=== PATIENT | female | born 1950 | race African-American/Black ===

== ENCOUNTER 2017-03-06 06:06 | Day surgery (SDC) | payer OTHER ==
[~2017-03-06] VITALS: Ht 167.6 cm; Wt 93.4 kg
[2017-03-06] VITALS (11 sets, daily range): BP systolic 131–149; BP diastolic 83–98
[~2017-03-06 06:06] MED LIST: ASPIR 8181 MG ORAL; Akten 3.5% 1ml Btl ONE; CARVEDILOL25 MG ORAL; Diclofenac Sod 0.1% Op Soln ONE; EDARBYCLOR 40-1 EACH ORAL; Gatifloxacin Opth Solution 0.5% ONE; HYDRALAZINE HC100 MG ORAL; K-DUR10 ME1 ORAL; MYCOPHENOLATE500 MG PO; NOVOLOG100 UNITS1; PRAVASTATIN SOD20 M1 ORAL; PREDNISONE10 MG ORAL; Phenylephrine 2.5% Op Soln ONE; TACROLIMUS1 MG PO; TENEX PO; Tobradex Opth Susp 2.5ml ONE; Tropicamide 1% Opth Soln ONE; VIT C PO; VIT D; VIT D3 PO; VIT E PO
[2017-03-06] MEDS ORDERED: Tobradex Opth Susp 2.5ml ONE (06:37)
[2017-03-06] MEDS ORDERED: Dexamethasone 4mg/ml vial ONE (06:37)
[2017-03-06] MEDS ORDERED: BSS 500ml btl ONE (06:37)
[2017-03-06] MEDS ORDERED: Lidocaine 1% MPF 10mg/ml 5ml ONE (06:37)
[2017-03-06] MEDS ORDERED: Povidone-Iodine 5% opth solution ONE (06:38)
[2017-03-06] MEDS ORDERED: EPINEPHrine 1mg/1ml Amp ONE (06:38)
[2017-03-06] MEDS ORDERED: Akten 3.5% 1ml Btl ONE (06:39)
[2017-03-06] MEDS ORDERED: Sodium Hyaluronate 10 mg/ml 0.85ml ONE (06:43)
[2017-03-06] MEDS ORDERED: Carbachol 0.01% Op Soln 1.5ml vial ONE (06:43)
[2017-03-06] MEDS: Diclofenac Sod 0.1% Op Soln RIGHT EYE SCH ×3 (06:46→07:04)
[2017-03-06] MEDS: Tropicamide 1% Opth Soln RIGHT EYE SCH ×3 (06:46→07:03)
[2017-03-06] MEDS: Phenylephrine 2.5% Op Soln RIGHT EYE SCH ×3 (06:46→07:03)
[2017-03-06] MEDS: Tobradex Opth Susp 2.5ml RIGHT EYE SCH ×3 (06:46→07:03)
[2017-03-06] MEDS: Akten 3.5% 1ml Btl RIGHT EYE SCH ×3 (06:47→07:03)
[2017-03-06] MEDS: Gatifloxacin Opth Solution 0.5% RIGHT EYE SCH ×3 (06:47→07:03)
[2017-03-06] MEDS ORDERED: Diclofenac Sod 0.1% Op Soln RIGHT EYE SCH (07:30)
[2017-03-06] MEDS ORDERED: Gatifloxacin Opth Solution 0.5% RIGHT EYE SCH (07:30)
[2017-03-06] MEDS ORDERED: NS Irrig 1000ml ONE (07:30)
[2017-03-06] MEDS ORDERED: Midazolam 2mg/2ml Inj ONE (07:30)
[2017-03-06] MEDS ORDERED: LR 1000ml ONE (07:30)
[2017-03-06] MEDS ORDERED: fentaNYL 100 mcg/2 mL IV ONE (07:30)
[2017-03-06] MEDS ORDERED: Sterile Water Irrig 1000ml IRRIG ONE (07:30)
--- NOTE | 2017-03-06 07:36 | Pre-Procedure Note/Attestation ---
Pre-Procedure Note/Attestation Complete Prior to Procedure Planned Procedure: right Procedure Narrative: cataract extraction with implant right eye Indications for Procedure Pre-Operative Diagnosis: cataract right eye Attestation I attest that I discussed the nature of the procedure; its benefits; risks and complications; and alternatives (and the risks and benefits of such alternatives ), prior to the procedure, with the patient (or the patient's legal farm loan representative). I attest that, if there was a reasonable possibility of needing a blood transfusion, the patient (or the patient's legal farm loan representative) was given the [facility] standardized written summary, pursuant to the [place] Blood Safety Act ([place] Health and Safety Code # 1645, as amended). I attest that I re-evaluated the patient just prior to the surgery and that there has been no change in the patient's H&P, except as documented below: EDMUND MAN Mar 06, 2017 07:36
--- NOTE | 2017-03-06 07:50 | Anethesia Preoperative Eval ---
Anesthesia Pre-op PMH/ROS General Date of Evaluation: Mar 06, 2017 Time of Evaluation: 07:49 Anesthesiologist: radha ASA Score: ASA 3 Mallampati Score Class I : Soft palate, uvula, fauces, pillars visible Class II: Soft palate, uvula, fauces visible Class III: Soft palate, base of uvula visible Class IV: Only hard plate visible Mallampati Classification: Class III Surgeon: annmarie Diagnosis: cataract Surgical Procedure: cataract extraction with IOL Anesthesia History: none Family History: no anesthesia problems Allergies: Coded Allergies: PENICILLINS (Verified Allergy, Intermediate, hives, 03/05/17) Medications: see eMAR Past Medical History Cardiovascular: Reports: CAD, HTN Gastrointestinal/Genitourinary: Denies: CRI, ESRD, GERD, other Neurologic/Psychiatric: Denies: CVA, TIA, dementia, depression/anxiety, other Endocrine: Reports: DM HEENT: Reports: cataract (R) Hematology/Immune: Denies: DVT, anemia, bleeding disorder, other Musculoskeletal/Integumentary: Denies: DDD, DJD, OA, RA, edema, other Other: obesity PSxH Narrative: heart transplant 7 years ago Anesthesia Pre-op Phys. Exam Physician Exam Last Vital Signs Date Time Temp Pulse Resp B/P Pulse Ox O2 Delivery O2 Flow Rate FiO2 03/06/17 06:52 98.0 75 18 133/87 97 Room Air Constitutional: NAD Neurologic: CN 2-12 intact Cardiovascular: RRR Respiratory: CTA Gastrointestinal: S/NT/ND Airway Exam Mallampati Classification 3 Mallampati Score: Class III MO: full Neck: thick ROM: full Dentures: no lower, no upper Anesthesia Pre-op A/P Labs Accucheck bs = 158 Studies Pre-op Studies: EKG - s Risk Assessment & Plan Plan: mac Status Change Before Surgery: No Pre-Antibiotics Drug: none FRED LOPEZ ELDERLY COMPANION Mar 06, 2017 07:50
--- NOTE | 2017-03-06 08:09 | Brief Operative Note ---
Immediate Post Operative Note Operative Note Pre-op Diagnosis: cataract right eye Procedure: phacoemulsification of cataract with implant right eye Post-op Diagnosis: same as pre-op Surgeon: edmund anguiano Management Professional: none Anesthesiologist: prabhjot garcia crna Anesthesia: MAC Specimen: none Complications: none Condition: stable Estimated Blood Loss: none Drains: none Implant(s) used?: Yes EDMUND ANGUIANO Mar 06, 2017 08:09
--- NOTE | 2017-03-06 08:18 | Immediate Post-Op Evaluation ---
Immediate Post-Op Evalulation Immediate Post-Op Evalulation Procedure: cataract extraction with IOL Date of Evaluation: Mar 06, 2017 Time of Evaluation: 08:05 IV Fluids: 300 Blood Pressure Systolic: 145 Blood Pressure Diastolic: 70 Pulse Rate: 70 Respiratory Rate: 14 O2 Sat by Pulse Oximetry: 100 Temperature (Fahrenheit): 97.0 Nausea: No Vomiting: No Complications none Patient Status: awake, reacts, patent Hydration Status: adequate Drug: none DELANEYRIJAMIONFRED [employer] Mar 06, 2017 08:18
--- NOTE | 2017-03-06 08:55 | 48 Hour Post Anesthesia Eval ---
Post Anesthesia Evaluation Procedure: cataract extraction with IOL Date of Evaluation: Mar 06, 2017 Time of Evaluation: 08:54 Blood Pressure Systolic: 146 0: 89 Pulse Rate: 75 Respiratory Rate: 14 O2 Sat by Pulse Oximetry: 100 Airway: patent Nausea: No Vomiting: No Hydration Status: adequate Cardiopulmonary Status: stable Mental Status/LOC: patient returned to baseline Post-Anesthesia Complications: none Follow-up care needed: N/A FRED LOPEZ CRNA Mar 06, 2017 08:55
--- NOTE | 2017-03-06 09:15 | Operative Note - Dictated ---
DATE OF OPERATION: 03/06/2017 PREOPERATIVE DIAGNOSIS: Cataract, right eye. POSTOPERATIVE DIAGNOSIS: Cataract, right eye. PROCEDURE: Phacoemulsification cataract right eye with placement of posterior chamber intraocular lens. SURGEON: Samuel Mcgill M.D. SNAGGER: None. ANESTHESIA: MAC/topical. ANESTHESIOLOGIST: Selina Vee C.R.N.A. INDICATION FOR PROCEDURE: Poor vision, right eye. DESCRIPTION OF FINDINGS: Nuclear sclerotic cataract, right eye. DESCRIPTION OF PROCEDURE: The patient received a topical anesthetic block consisting of 3.5% Akten eye drops. The eye was then prepped and draped in usual manner. A lid speculum was placed and a Zeiss microscope was positioned. A temporal corneal groove was made with the kyrie blade. A SuperSharp blade made a stab incision in the 12 o'clock position. A 0.1 mL of 1% nonpreserved intracameral lidocaine was injected. Healon was instilled into the anterior chamber and a 2.5/2.8 mm trapezoidal kyrie blade was used to complete the temporal corneal wound. A cystotome was used to create an anterior capsular flap. Utrata forceps were used to complete the capsulorrhexis. BSS on a cannula was used to hydrodissect the nucleus. The lens nucleus was phacoemulsified in a phaco-fracture technique. Remaining cortical material was removed with the I/A and the posterior capsule polished with the I/A on Cap vac. Healon was reinstilled into the capsular bag and anterior chamber, and an John foldable one-piece posterior chamber lens, model ZCB00, power 10.5 diopter, serial #[id number] was placed in the injector. The lens was put into the capsular bag. The I/A tip was used to remove the Healon and position the lens. The wound edge was hydrated with BSS and a blunt-tipped cannula. The wound was checked and found to be watertight. The lid speculum was removed. A drop of TobraDex and Zymaxid with was placed. A clear plastic shield was taped over the eye. The patient tolerated the procedure well and left the operating room in good condition. Samuel Mcgill M.D. (CSM) DR: MIHIR JOB#: [id number] CC:
== END 2017-03-06 09:25 | disposition home or self-care (01) ==
LOC: SUR 06:06
DX: H25.11 Age-related nuclear cataract, right eye (principal); E11.42 Type 2 diabetes mellitus with diabetic polyneuropathy; I13.0 Hypertensive heart and chronic kidney disease with heart failure and stage 1 through stage 4 chronic kidney disease, or unspecified chronic kidney disease; E11.22 Type 2 diabetes mellitus with diabetic chronic kidney disease; N18.3 Chronic kidney disease, stage 3 (moderate); I50.9 Heart failure, unspecified; Z79.4 Long term (current) use of insulin; E78.00 Pure hypercholesterolemia, unspecified; E66.9 Obesity, unspecified; Z68.33 Body mass index [BMI] 33.0-33.9, adult; I77.819 Aortic ectasia, unspecified site; Z94.1 Heart transplant status; Z86.79 Personal history of other diseases of the circulatory system; Z88.0 Allergy status to penicillin; Z90.49 Acquired absence of other specified parts of digestive tract; Z79.82 Long term (current) use of aspirin; Z79.899 Other long term (current) drug therapy; Z79.52 Long term (current) use of systemic steroids
CPT/HCPCS: 82962; 94003; 94150; J2250